=== PATIENT | male | born 1985 | race Caucasian/White ===

== ENCOUNTER 2017-05-03 16:57 | Emergency (ER) | payer OTHER ==
[~2017-05-03] VITALS: Ht 182.9 cm; Wt 98.4 kg
[2017-05-03 16:59] VITALS: BP_SYST 143
[2017-05-03] MEDS ORDERED: methylPREDNISolone SOD SUCC/PF 62.5 MG/ML VIAL IM ONE (17:15)
[2017-05-03 17:41] VITALS: BP_SYST 143
== END 2017-05-03 17:39 | disposition home or self-care (01) ==
LOC: SED 16:57
DX: L23.7 Allergic contact dermatitis due to plants, except food (principal); Z88.0 Allergy status to penicillin; Z88.2 Allergy status to sulfonamides; Z88.1 Allergy status to other antibiotic agents
CPT/HCPCS: 96372; 99283; J2930